=== PATIENT | male | born 1995 | race Caucasian/White ===

== ENCOUNTER 2017-03-04 14:28 | Emergency (ER) | payer MEDICAID, OTHER ==
[~2017-03-04] VITALS: Ht 182.9 cm; Wt 81.6 kg
[2017-03-04 16:40] LABS: Albumin 4.2 g/dL (3.4-5.0); Alkaline Phosphatase 106 U/L (45-117); Anion Gap 7 (5-15); Aspartate Aminotransferase 27 U/L (15-37); BUN/Creatinine Ratio 12.2; Bilirubin, Total 0.4 mg/dL (0.2-1.0); Blood Urea Nitrogen 9 mg/dL (7-18); Calcium 9.5 mg/dL (8.5-10.1); Carbon Dioxide 27 mmol/L (21-32); Chloride 102 mmol/L (98-107); GFR African American 172 mL/min; GFR Non-African American 142 mL/min; Glucose 99 mg/dL (74-106); Potassium 3.4 mmol/L (3.5-5.1); Sodium 136 mmol/L (136-145); Total Protein 8.1 g/dL (6.4-8.2)
[2017-03-04 16:41] LABS: Salicylate < 1.7 mg/dL (2.8-20.0)
[2017-03-04 16:45] LABS: Basophils # (auto) 0.1 uL; Basophils % (auto) 0.9 % (0.0-2.0); CONDITION Y; Eosinophils # (auto) 0.1 uL; Eosinophils % (auto) 0.9 % (0.0-7.0); Hematocrit 42.6 % (41.0-53.0); Hemoglobin 14.6 g/dL (13.5-17.5); Lymphocytes # (auto) 2.2 uL; Lymphocytes % (auto) 14.7 % (10.0-50.0); Mean Corpuscular Hemoglobin 31.5 pg (28.0-32.0); Mean Corpuscular Hgb Conc. 34.3 g/dL (32.0-36.0); Mean Corpuscular Volume 91.7 fL (80.0-100.0); Mean Platelet Volume 8.9 fL (7.4-10.4); Monocytes # (auto) 1.3 uL; Monocytes % (auto) 8.5 % (0.0-12.0); Neutrophils # (auto) 11.3 uL; Platelet Count (auto) 361 10^3/uL (140-450); Red Cell Distribution Width 14.1 % (11.6-16.0); White Blood Cell 15.1 10^3/uL (4.4-10.8)
[2017-03-04 16:48] LABS: Acetaminophen < 2.0 ug/mL (10-30)
[2017-03-04] MEDS ORDERED: SODIUM CHLORIDE 0.9% 1,000 ML IV ONE (19:00)
[2017-03-04 19:52] LABS: Albumin 3.7 g/dL (3.4-5.0); Potassium 3.1 mmol/L (3.5-5.1)
[2017-03-04 19:55] LABS: BUN/Creatinine Ratio 10.1
[2017-03-04 20:26] LABS: Bilirubin, Total 0.4 mg/dL (0.2-1.0); Calcium 9.7 mg/dL (8.5-10.1); Total Protein 7.4 g/dL (6.4-8.2)
[2017-03-04] MEDS ORDERED: POTASSIUM CHL 20 Meq TABLET PO ONE (22:15)
[2017-03-04 22:45] LABS: Urine Bilirubin Negative (Negative); Urine Blood Negative /uL (Negative); Urine Color Yellow (Yellow); Urine Glucose Normal (Normal); Urine Ketone Negative (Negative); Urine Nitrite Negative (Negative); Urine RBC 1 /hpf (0 - 3); Urine Sperm PRESENT /hpf (None Seen); Urine Urobilinogen Normal (Negative); Urine pH 7.5 (5.0-8.0)
[2017-03-05 05:00] LABS: Basophils # (auto) 0.1 uL; Basophils % (auto) 0.4 % (0.0-2.0); CONDITION Y; DEFINITIVE SEE PRINTOUT; Eosinophils # (auto) 0.3 uL; Hematocrit 37.9 % (41.0-53.0); Lymphocytes # (auto) 2.4 uL; Lymphocytes % (auto) 15.9 % (10.0-50.0); Mean Corpuscular Hemoglobin 31.4 pg (28.0-32.0); Mean Corpuscular Hgb Conc. 34.4 g/dL (32.0-36.0); Mean Corpuscular Volume 91.4 fL (80.0-100.0); Mean Platelet Volume 8.3 fL (7.4-10.4); Monocytes # (auto) 1.8 uL; Monocytes % (auto) 11.9 % (0.0-12.0); Neutrophils # (auto) 10.5 uL; Neutrophils % (auto) 69.8 % (37.0-80.0); Platelet Count (auto) 312 10^3/uL (140-450); Red Cell Distribution Width 14.1 % (11.6-16.0)
[2017-03-05 05:29] LABS: Albumin 3.5 g/dL (3.4-5.0); Bilirubin, Total 0.8 mg/dL (0.2-1.0); Calcium 8.6 mg/dL (8.5-10.1); Potassium 3.4 mmol/L (3.5-5.1); Total Protein 6.7 g/dL (6.4-8.2)
[2017-03-06] MEDS ORDERED: LORazepam 0.5 MG TAB PO ONE ×2 (14:30→21:45)
[2017-03-06 21:56] VITALS: BP 124/76
[2017-03-06] MEDS ORDERED: LORazepam 0.5 MG TAB ONE (21:56)
== END 2017-03-06 23:07 | disposition short-term general hospital (02) ==
LOC: ER 14:28
DX: F32.9 Major depressive disorder, single episode, unspecified (principal); R45.851 Suicidal ideations; F41.9 Anxiety disorder, unspecified; F15.10 Other stimulant abuse, uncomplicated
CPT/HCPCS: 36415; 80053; 80178; 80307; 80320; 80329; 81001; 85025; 93005; 94761; 96360; 96361; 99285; J7030